=== PATIENT | female | born 1995 | race Caucasian/White ===

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

== ENCOUNTER 2017-04-25 21:23 | Emergency (ER) | payer MEDICAID ==
[~2017-04-25] VITALS: Ht 172.7 cm; Wt 68.0 kg
[2017-04-25 21:55] VITALS: BP 116/62; PULSE 68; RESP 16; TEMP 99.4; O2SAT 98
[2017-04-25] MEDS ORDERED: birth control pill (23:20)
[2017-04-25 23:53] VITALS: BP 122/62; PULSE 88; RESP 20; O2SAT 98
[2017-04-26 00:20] LABS: BILIRUBIN, URINE NEG (NEG); BLOOD, URINE SMALL (NEG); CALCIUM OXALATE CRYSTALS,URINE FEW /hpf; GLUCOSE,URINE NEG (NEG); HYALINE CAST, URINE 1 /lpf (RARE); KETONE, URINE NEG (NEG); MUCUS URINE MANY /lpf (OCC); NITRITE,URINE NEG (NEG); SQUAMOUS EPITHELIAL CELL URINE 3 /hpf (0-5); URINE COLOR YELLOW (YELLW/STRAW); URINE LEUKOCYTE ESTERASE NEG (NEG)
--- NOTE | 2017-04-26 03:02 | RADRPT ---
EXAM DATE/TIME: 04/26/2017 02:06 [place] COMPARISON: No previous studies available for comparison. INDICATIONS : Abdomen pain. ORAL CONTRAST: No oral contrast ingested. RADIATION DOSE: 6.71 CTDIvol (mGy) MEDICAL HISTORY : Gastroesophageal reflux disease. SURGICAL HISTORY : None. ENCOUNTER: Initial ACUITY: 1 day PAIN SCALE: 5/10 LOCATION: Bilateral abdomen. TECHNIQUE: Volumetric scanning of the abdomen and pelvis was performed. Using automated exposure control and ad justment of the mA and/or kV according to patient size, radiation dose was kept as low as reasonably achievable to obtain optimal diagnostic quality images. DICOM format image data is available electro nically for review and comparison. FINDINGS: LOWER LUNGS: The visualized lower lungs are clear. LIVER: Homogeneous density without lesion. There is no dilation of the biliary tree. No calcified gallston es. SPLEEN: Normal size without lesion. PANCREAS: Within normal limits. KIDNEYS: Normal in size and shape. There is no mass, stone, or hydronephrosis. ADRENAL GLANDS: Within normal limits. VASCULAR: There is no aortic aneurysm. BOWEL/MESENTERY: The stomach, small bowel, and colon demonstrate no acute abnormality. Appendix is visualized and norm al in appearance. There is no free intraperitoneal air or fluid. ABDOMINAL WALL: Within normal limits. RETROPERITONEUM: There is no lymphadenopathy. BLADDER: No wall thickening or mass. REPRODUCTIVE: Within normal limits. INGUINAL: There is no lymphadenopathy or hernia. MUSCULOSKELETAL: Within normal limits for patient age. CONCLUSION: 1. No acute CT abnormality in the abdomen or pelvis. 2. No radiopaque renal calculi or obstructive uropathy. 3. Normal appendix. Jack Smith MD on April 26, 2017 at 3:00 Board Certified Radiologist. This report was verified electronically.
--- NOTE | 2017-04-26 03:11 | PD ---
HPI Chief Complaint: Abdominal Pain Time Seen by Provider: 00:00 Travel History International Travel<30 days: No Contact w/Intl Traveler<30days: No Traveled to known affect area: No History of Present Illness HPI 22-year-old female presents to the emergency department by private transportation for evaluation of abdominal pain and back pain. Patient has history of irregular heartbeat migraines and IUD. Patient does not report any fever chills hematemesis coffee-ground emesis melena hematochezia or hematuria. Patient denies . Patient takes no chronic prescription medications at this time. Patient is unable to identify exacerbating or alleviating factors. Pain is 5-6/10 intensity. Patient voices no other concerns or complaints. No reported fever chills cough congestion sore throat earache chest pain shortness of breath flank pain hematuria pelvic pain or vaginal discharge. PFSH Past Medical History Narrative Medical Anxiety depression; no tobacco use; nursing notes reviewed ADHD: No Weight (Kg): 3 Anxiety: Yes Depression: Yes Heart Rhythm Problems: Yes (irregular heart beat (Dad has also)) Cancer: No Cardiovascular Problems: No Diabetes: No Diminished Hearing: No GERD: Yes Headaches: Yes (MIGRAINES FROM CONCUSSION) Implanted Vascular Access Dvce: Yes (IUD) Psychiatric: No Immunizations Current: No Migraines: No Seizures: No Thyroid Disease: No Ulcer: No Tetanus Vaccination: < 5 Years Influenza Vaccination: Yes ?: Unknown LMP: 04/19/17 : 1 Para: 1 Past Surgical History Other Surgery: No Social History Alcohol Use: No Tobacco Use: No Substance Use: No Allergies-Medications (Allergen,Severity, Reaction): Coded Allergies: No Known Allergies (Unverified , 08/30/16) Reported Meds & Prescriptions Reported Meds & Active Scripts Active Reported [ control pill] Review of Systems Except as stated in HPI: all other systems reviewed are Neg Physical Exam Narrative GENERAL: Well-developed well-nourished female no acute distress or respiratory distress SKIN: Warm and dry. HEAD: Normocephalic. EYES: No scleral icterus. No injection or drainage. NECK: Supple, trachea midline. No JVD or lymphadenopathy. CARDIOVASCULAR: Regular rate and rhythm without murmurs, gallops, or rubs. RESPIRATORY: Breath sounds equal bilaterally. No accessory muscle use. GASTROINTESTINAL: Abdomen soft, non-tender, nondistended. MUSCULOSKELETAL: No cyanosis, or edema. BACK: Nontender without obvious deformity. No CVA tenderness. Data Data Last Documented VS Vital Signs Date Time Temp Pulse Resp B/P (MAP) Pulse Ox O2 Delivery O2 Flow Rate FiO2 04/26/17 03:33 04/25/17 23:53 88 20 98 04/25/17 21:55 99.4 Orders Orders Urinalysis - C+S If Indicated (04/26/17 00:00) Ed Urine Pregnancytest Poc (04/26/17 00:00) Ct Abd/Pel W/O Iv Contrast (04/26/17 ) Ketorolac Inj (Toradol Inj) (04/26/17 03:15) Ed Discharge Order (04/26/17 03:14) Labs Laboratory Tests Test 04/26/17 00:05 Urine Color YELLOW Urine Turbidity HAZY Urine pH 6.0 Urine Specific [place] 1.032 Urine Protein 30 mg/dL Urine Glucose (UA) NEG mg/dL Urine Ketones NEG mg/dL Urine Occult Blood SMALL Urine Nitrite NEG Urine Bilirubin NEG Urine Urobilinogen LESS THAN 2.0 MG/DL Urine Leukocyte Esterase NEG Urine RBC 9 /hpf Urine WBC 2 /hpf Urine Squamous Epithelial Cells 3 /hpf Urine Calcium Oxalate Crystals FEW /hpf Urine Hyaline Casts 1 /lpf Urine Mucus MANY /lpf Microscopic Urinalysis Comment CULT NOT INDICATED MDM Medical Decision Making Medical Screen Exam Complete: Yes Emergency Medical Condition: Yes Medical Record Reviewed: Yes Interpretation(s) [id number] hCG: Negative Last Impressions Abdomen/Pelvis CT 04/26/17 0000 Signed Impressions: Service Date/Time: Wednesday, April 26, 2017 02:06 - CONCLUSION: 1. No acute CT abnormality in the abdomen or pelvis. 2. No radiopaque renal calculi or obstructive uropathy. 3. Normal appendix. Jack Smith MD Vital Signs Date Time Temp Pulse Resp B/P (MAP) Pulse Ox O2 Delivery O2 Flow Rate FiO2 04/26/17 03:33 04/25/17 23:53 88 20 122/62 (82) 98 04/25/17 21:55 99.4 68 16 116/62 (80) 98 UA: many calcium oxalate crystals, few red blood cells Differential Diagnosis Abdominal pain, gastroenteritis, gastritis biliary colic pancreatitis appendicitis colitis inflammatory bowel disease UTI ectopic Narrative Course Specimens collected and sent for resulting imaging study ordered Patient resting comfortably voicing no concerns or complaints Urinalysis shows calcium oxalate crystals are suspicious for possible calcium related stones CT abdomen pelvis reveals no acute process Patient is stable for outpatient management; patient given Toradol 30 mg IV Diagnosis Primary Impression: Abdominal pain Referrals: Primary Care Physician call for appointment Patient Instructions: General Instructions Departure Forms: Tests/Procedures, Work Release Special Instructions: no work x 1 day Additional Instructions: Follow-up with your primary care provider Take ibuprofen/Advil/Motrin 600 mg as often as every 6 hours as needed for pain associated inflammation Return to the emergency department for any concerns or change in condition Disposition: 01 DISCHARGE HOME Condition: Stable Ashley Riley MD Apr 26, 2017 03:11
[2017-04-26] MEDS ORDERED: KETOROLAC TROMETHAMINE 60 MG/2 ML (IM) VIAL IM ONE (03:15)
== END 2017-04-26 04:05 | disposition home or self-care (01) ==
LOC: NEPC 21:23
DX: R10.9 Unspecified abdominal pain (principal)
CPT/HCPCS: 74176; 81001; 84703; 96372; 99284; J1885

== ENCOUNTER 2017-07-14 07:10 | Emergency (ER) | payer MEDICAID ==
[~2017-07-14 07:10] MED LIST changes: -DEPA500T3 PO; -FLUC150T PO; -HYDR-3288 PO; -MIREIUD I-UTERINE; -PAME10CA PO; -PENI500T PO; -TERC20CR PV; -TERC20CR VAGINAL; -ZOFR4TAB PO; +birth control pill
[2017-07-14 07:12] VITALS: BP 123/72; PULSE 116; RESP 12; TEMP 102.8; O2SAT 96
[2017-07-14 07:30] VITALS: BP 123/73; PULSE 108; RESP 18; TEMP 101.5; O2SAT 99
[2017-07-14] MEDS ORDERED: NORG1TAB28 PO (07:36)
--- NOTE | 2017-07-14 07:40 | PD ---
HPI Chief Complaint: Fever Time Seen by Provider: 07:22 Travel History International Travel<30 days: No Contact w/Intl Traveler<30days: No Traveled to known affect area: No History of Present Illness HPI This is a 22-year-old female who presents to the emergency department with fever for 4 days, constant, associated with lower abdominal discomfort, and sore throat, moderate severity. She also thinks she had a miscarriage on Tuesday. She says for 4 weeks she had sore breasts and she felt a little bit nauseous and then she had a heavy period. She never had a positive test. She took a test on Tuesday which was negative. She denies any sick contacts. She denies any vaginal discharge. PFS Past Medical History ADHD: No Weight (Kg): 3 Anxiety: Yes Depression: Yes Heart Rhythm Problems: Yes (irregular heart beat (Dad has also)) Cancer: No Cardiovascular Problems: No Diabetes: No Diminished Hearing: No GERD: Yes Headaches: Yes (MIGRAINES FROM CONCUSSION) Implanted Vascular Access Dvce: Yes (IUD) Psychiatric: No Immunizations Current: No Migraines: No Seizures: No Thyroid Disease: No Ulcer: No ?: Unknown : 1 Para: 1 Past Surgical History Other Surgery: No Social History Alcohol Use: No Tobacco Use: No Substance Use: No Allergies-Medications (Allergen,Severity, Reaction): Coded Allergies: No Known Allergies (Unverified , 08/30/16) Reported Meds & Prescriptions Reported Meds & Active Scripts Active Reported Ortho Tri-Cyclen Lo (Norgestimate-Ethinyl Estradiol) 0.18/0.215/0.25 mg-25 Mcg Tab 1 Tab PO DAILY [ control pill] Review of Systems Except as stated in HPI: all other systems reviewed are Neg Physical Exam Narrative GENERAL:Well appearing, no acute distress SKIN: Focused skin assessment warm and dry. HEAD: Atraumatic. Normocephalic. EYES: Pupils equal and round. No injection or drainage. ENT: Moist mucous membranes. Posterior pharyngeal erythema with no exudates. NECK: Trachea midline. Tender anterior cervical lymphadenopathy. CARDIOVASCULAR: Regular rate and rhythm. No murmur appreciated. RESPIRATORY: Clear to auscultation. Breath sounds equal bilaterally. GASTROINTESTINAL: Abdomen soft, tender to palpation in the suprapubic region with no rebound or guarding. MUSCULOSKELETAL: No obvious deformities. NEUROLOGICAL: Awake and alert. No obvious cranial nerve deficits. Moving all extremities. PSYCHIATRIC: Appropriate mood and affect; insight and judgment normal. Data Data Last Documented VS Vital Signs Date Time Temp Pulse Resp B/P (MAP) Pulse Ox O2 Delivery O2 Flow Rate FiO2 07/14/17 07:32 98 18 99 Room Air 07/14/17 07:30 101.5 123/73 (90) Orders Orders Group A Rapid Strep Screen (07/14/17 07:33) Complete Blood Count With Diff (07/14/17 07:33) Comprehensive Metabolic Panel (07/14/17 07:33) Urinalysis - C+S If Indicated (07/14/17 07:33) ^ Insert Iv (07/14/17 07:33) Beta Hcg (Quant/Titer) (07/14/17 07:33) Influenzae A/B Antigen (07/14/17 07:34) Sodium Chlor 0.9% 1000 Ml Inj (Ns 1000 M (07/14/17 07:45) Acetaminophen (Tylenol) (07/14/17 07:45) Ondansetron Odt (Zofran Odt) (07/14/17 08:15) Ed Urine Pregnancytest Poc (07/14/17 08:06) Strep Culture (Group A) (07/14/17 08:00) Labs Laboratory Tests Test 07/14/17 08:00 White Blood Count 7.6 TH/MM3 Red Blood Count 4.55 MIL/MM3 Hemoglobin 14.4 GM/DL Hematocrit 42.2 % Mean Corpuscular Volume 92.9 FL Mean Corpuscular Hemoglobin 31.6 PG Mean Corpuscular Hemoglobin Concent 34.0 % Red Cell Distribution Width 13.3 % Platelet Count 173 TH/MM3 Mean Platelet Volume 9.0 FL Neutrophils (%) (Auto) 73.5 % Lymphocytes (%) (Auto) 12.6 % Monocytes (%) (Auto) 13.6 % Eosinophils (%) (Auto) 0.1 % Basophils (%) (Auto) 0.2 % Neutrophils # (Auto) 5.6 TH/MM3 Lymphocytes # (Auto) 1.0 TH/MM3 Monocytes # (Auto) 1.0 TH/MM3 Eosinophils # (Auto) 0.0 TH/MM3 Basophils # (Auto) 0.0 TH/MM3 CBC Comment DIFF FINAL Differential Comment Urine Color LIGHT-YELLOW Urine Turbidity CLEAR Urine pH 6.5 Urine Specific [place] 1.022 Urine Protein TRACE mg/dL Urine Glucose (UA) NEG mg/dL Urine Ketones NEG mg/dL Urine Occult Blood LARGE Urine Nitrite NEG Urine Bilirubin NEG Urine Urobilinogen LESS THAN 2.0 MG/DL Urine Leukocyte Esterase NEG Urine RBC 1 /hpf Urine WBC 3 /hpf Urine Squamous Epithelial Cells 5 /hpf Urine Mucus FEW /lpf Microscopic Urinalysis Comment CULT NOT INDICATED Blood Urea Nitrogen 9 MG/DL Creatinine 0.68 MG/DL Random Glucose 97 MG/DL Total Protein 7.6 GM/DL Albumin 3.9 GM/DL Calcium Level 8.9 MG/DL Alkaline Phosphatase 50 U/L Aspartate Amino Transf (AST/SGOT) 17 U/L Alanine Aminotransferase (ALT/SGPT) 22 U/L Total Bilirubin 0.5 MG/DL Sodium Level 141 MEQ/L Potassium Level 3.7 MEQ/L Chloride Level 107 MEQ/L Carbon Dioxide Level 24.9 MEQ/L Anion Gap 9 MEQ/L Estimat Glomerular Filtration Rate 110 ML/MIN Human Chorionic Gonadotropin, Quant LESS THAN 1 MIU/ML MDM Medical Decision Making Medical Screen Exam Complete: Yes Emergency Medical Condition: Yes Interpretation(s) fever, tachycardic, normotensive no leukocytosis monocytic predominance Electrolytes are reassuring HCG is negative Electrolytes are reassuring Urinalysis demonstrates blood Influenza negative Strep negative Differential Diagnosis Viral pharyngitis, strep pharyngitis, mononucleosis, sepsis, meningitis, endometritis Narrative Course This is a 22-year-old female who presents to the emergency department with fever , sore throat and body aches. She also thinks she is having a miscarriage. Her hCG is negative so I do not think she was . She is nontoxic appearing on exam. Labs demonstrate a monocytic predominance suggesting a viral etiology of her symptoms. Strep is negative and influenza are negative. She was given a liter of IV fluid. I think she can safely be discharged and she was counseled on symptomatic management in the setting of a viral syndrome. She was urged to return to the emergency department if she feels worse. Diagnosis Primary Impression: Acute viral pharyngitis Patient Instructions: General Instructions Additional Instructions: If you develop severe worsening headache, persistent vomiting, numbness, weakness, difficulty walking or difficulty talking return to the emergency department immediately. Med/Other Pt SpecificInfo: Prescription(s) given Scripts Naproxen (Naproxen) 500 Mg Tab 500 MG PO BID Y for PAIN SCALE 4 TO 10, #10 TAB 0 Refills Prov: Yasmine Proctor MD 07/14/17 Disposition: 01 DISCHARGE HOME Condition: Stable Yasmine Proctor MD July 14, 2017 07:40
[2017-07-14] MEDS ORDERED: SODIUM CHLOR 0.9% 1000 ML INJ 1,000 ML IV ONE (07:45)
[2017-07-14] MEDS ORDERED: ACETAMINOPHEN 500 MG CPLT PO ONE (07:45)
[2017-07-14 08:14] LABS: AUTOMATED NEUTROPHIL # 5.6 TH/MM3 (1.8-7.7); BASOPHIL % 0.2 % (0.0-2.0); EOSINOPHIL % 0.1 % (0.0-4.0); HEMATOCRIT 42.2 % (35.0-46.0); HEMOGLOBIN 14.4 GM/DL (11.6-15.3); LYMPH % 12.6 % (9.0-44.0); MEAN CELL VOLUME 92.9 FL (80.0-100.0); MEAN CORPUSCULAR HEMOGLOBIN 31.6 PG (27.0-34.0); MONO % 13.6 % (0.0-8.0); NEUT % 73.5 % (16.0-70.0); PLATELET COUNT 173 TH/MM3 (150-450); RED BLOOD COUNT 4.55 MIL/MM3 (4.00-5.30); RED CELL DISTRIBUTION WIDTH 13.3 % (11.6-17.2); WHITE BLOOD COUNT 7.6 TH/MM3 (4.0-11.0)
[2017-07-14] MEDS ORDERED: ONDANSETRON ODT 4 MG TAB PO ONE (08:15)
[2017-07-14 08:18] LABS: MUCUS URINE FEW /lpf (OCC); SQUAMOUS EPITHELIAL CELL URINE 5 /hpf (0-5)
[2017-07-14 08:21] LABS: BILIRUBIN, URINE NEG (NEG); BLOOD, URINE LARGE (NEG); GLUCOSE,URINE NEG (NEG); KETONE, URINE NEG (NEG); NITRITE,URINE NEG (NEG); PH, URINE 6.5 (5.0-8.5); URINE COLOR LIGHT-YELLOW (YELLW/STRAW); URINE LEUKOCYTE ESTERASE NEG (NEG)
[2017-07-14 08:29] LABS: ALBUMIN 3.9 GM/DL (3.4-5.0); ALT (GPT) 22 U/L (9-42); AST (GOT) 17 U/L (16-38); BICARBONATE 24.9 MEQ/L (21.0-32.0); BLOOD UREA NITROGEN 9 MG/DL (7-18); CALCIUM 8.9 MG/DL (8.5-10.1); CHLORIDE 107 MEQ/L (98-107); CREATININE 0.68 MG/DL (0.50-1.00); GLOMERULAR FILTRATION RATE 110 ML/MIN (>89); GLUCOSE,RANDOM 97 MG/DL (74-106); SODIUM (NA) 141 MEQ/L (136-145)
[2017-07-14 08:33] LABS: ALKALINE PHOSPHATASE 50 U/L (45-117); TOTAL BILIRUBIN ADULT 0.5 MG/DL (0.2-1.0); TOTAL PROTEIN 7.6 GM/DL (6.4-8.2)
[2017-07-14] MEDS ORDERED: NAPR500T2 PO (08:46)
[2017-07-14 09:09] VITALS: BP 89/43; PULSE 80; RESP 18; TEMP 100.3; O2SAT 99
== END 2017-07-14 09:51 | disposition home or self-care (01) ==
LOC: NEPC 07:10
DX: J02.8 Acute pharyngitis due to other specified organisms (principal); B97.89 Other viral agents as the cause of diseases classified elsewhere; N92.0 Excessive and frequent menstruation with regular cycle
CPT/HCPCS: 80053; 81001; 84702; 84703; 85025; 87081; 87804; 87880; 99284; J7030